=== PATIENT | male | born 2000 | race Caucasian/White ===

== ENCOUNTER 2021-04-18 23:39 | Emergency (ER) | payer SELFPAY ==
[2021-04-19] MEDS ORDERED: NORCO 325 MG-51 TA1 PO (01:21)
[2021-04-19 01:32] VITALS: BP 118/77
== END 2021-04-19 01:32 | disposition home or self-care (01) ==
LOC: ED 23:39
DX: S52.501A Unspecified fracture of the lower end of right radius, initial encounter for closed fracture (principal); F17.210 Nicotine dependence, cigarettes, uncomplicated; X50.0XXA Overexertion from strenuous movement or load, initial encounter
CPT/HCPCS: J1885